=== PATIENT | male | born 2000 | race Caucasian/White ===

== ENCOUNTER 2021-01-03 15:11 | Outpatient (REF) | payer OTHER, SELFPAY | END 2021-01-03 15:12 | disposition home or self-care (01) | LOC: HO.LAB 15:11 | PROVIDERS: Visit Provider Internal Medicine | DX: Z20.822 Contact with and (suspected) exposure to COVID-19 (principal) | CPT/HCPCS: C9803; U0003; U0005 ==

== ENCOUNTER 2021-05-05 10:50 | Outpatient (REF) | payer SELFPAY ==
[2021-05-05 12:00] LABS: Binax Internal Control QC Valid; Binax Lot number: 17705; Binax Now Covid-19 Ag Negative (Negative)
== END 2021-05-05 10:51 | disposition home or self-care (01) ==
LOC: HO.LAB 10:50
PROVIDERS: Visit Provider Internal Medicine
DX: Z20.822 Contact with and (suspected) exposure to COVID-19 (principal)
CPT/HCPCS: C9803